=== PATIENT | female | born 1990 | race Caucasian/White ===

== ENCOUNTER 2016-09-26 00:25 | Emergency (ER) | payer OTHER ==
[2016-09-26 01:06] LABS: BASOPHIL 0.3 % (0-2); EOSINOPHIL 1.6 % (0-5); HCT 43.1 % (37.0-47.0); HGB 15.4 g/dl (12.5-16.0); LYMPHOCYTE 27.9 % (15-48); MCH 31.4 pg (25.0-31.0); MCHC 35.7 g/dL (32.0-36.0); MONOCYTE 9.8 % (0-12); MPV 10.8 fL (6.0-9.5); NEUTROPHIL 60.4 % (41-80); PLT 218 K/uL (150-400); RDW 11.7 % (11.5-14.0); WBC 11.7 K/uL (4.0-10.5)
[2016-09-26 01:21] LABS: LACTIC ACID 1.2 mmol/L (0.5-2.2)
[2016-09-26 01:22] LABS: CREATININE 0.9 mg/dL (0.5-1.0); POTASSIUM 4.1 mmol/L (3.5-5.1)
== END 2016-09-26 02:30 | disposition home or self-care (01) ==
LOC: FER 00:25
PROVIDERS: Emergency Medicine
DX: L03.115 Cellulitis of right lower limb (principal); F17.210 Nicotine dependence, cigarettes, uncomplicated; Z88.0 Allergy status to penicillin; Z88.5 Allergy status to narcotic agent
CPT/HCPCS: 36415; 80048; 83605; 85025